=== PATIENT | female | born 1940 | race Caucasian/White ===

== ENCOUNTER 2020-01-05 10:52 | Emergency (ER) | payer OTHER, MEDICAID ==
[~2020-01-05] VITALS: Ht 160 cm; Wt 72.6 kg
--- NOTE | 2020-01-05 10:53 | NUR ---
BIBA TO ER BED 2
[2020-01-05 11:01] VITALS: BP 163/92
--- NOTE | 2020-01-05 11:08 | NUR ---
79 Y/O FEMALE BIBA ALS C/O INCREASED BP, DIZZINESS, AND DECREASED HEARING IN LT EAR THAT STARTED THIS MORNING. PT STATES THAT SHE IS COMPLIANT WITH MEDS, TOOK BP PRIOR TO TAKING MEDS. DENIES BLURRED VISION OR HEADACHE. STATES DECREASE IN DIZZINESS SINCE ARRIVAL. NO CHEST PAIN/SOB. PT PLACED ON MONITOR AND POSITIONED FOR COMFORT. RR EVEN AND UNLABORED, CALM AND PLEASANT. VSS MEDHX: HTN ALLERGIES: NKA
--- NOTE | 2020-01-05 12:46 | NUR ---
PT RESTING IN BED, RR EVEN AND UNLABORED. X 1 SIDE RAIL RAISED, BED LOCKED AND IN LOW POSITION. VSS. WILL CONTINUE TO MONITOR
--- NOTE | 2020-01-05 13:35 | NUR ---
Patient discharged with v/s stable. Written and verbal after care instructions given and explained. Patient verbalized understanding. FAMILY MEMBERS @ BEDSIDE TO TRANSLATE PER PT PREFERENCE. Ambulatory with steady gait. All questions addressed prior to discharge. Advised to follow up with PMD.
[2020-01-05 13:36] VITALS: BP 133/67
== END 2020-01-05 13:35 | disposition home or self-care (01) ==
LOC: MED 10:52
DX: I10 Essential (primary) hypertension (principal); F41.9 Anxiety disorder, unspecified
CPT/HCPCS: 81002; 99281; 99282